=== PATIENT | female | born 1960 | race Caucasian/White ===

== ENCOUNTER → 2017-09-18 | Outpatient (CLI) | payer OTHER ==
[~2017-09-18] MED LIST: CEPHALEXIN500 M1 PO; METOPROLOL TART50 MG PO; Z.0.LEVOTHYROXINE50 PO; Z.0.LISINOPRIL40 MG PO; [UNRECOGNIZED DRUG - OTHER] PO; [UNRECOGNIZED DRUG - REMARK] PO
--- NOTE | 2017-09-25 18:11 | Diagnostic Imaging Report ---
#[id number] - MGSCRBIL #BILATERAL DIGITAL SCREENING MAMMOGRAM WITH CAD: 09/18/2017 CLINICAL: Routine screening. Comparison is made to exams dated: 10/15/2015 mammogram and 08/31/2014 mammogram - [facility]. Current study contains 4 films. There are scattered fibroglandular elements in both breasts. Current study was also evaluated with a Computer Aided Detection (CAD) system. There are benign lymph nodes in both breasts. There also are benign calcifications in the left breast. No significant masses, calcifications, or other findings are seen in either breast. There has been no significant interval change. IMPRESSION: BENIGN There is no mammographic evidence of malignancy. A 1 year screening mammogram is recommended. The patient will be notified by letter of the results. Philipp macario/franky:09/24/2017 17:30:01 Shift Superintendent Caustic Cresylate: Remedios BOOTHE)([place]), [facility] letter sent: Compared to Prior B9 Mammogram BI-RADS: 2 Benign
== END ==
LOC: MAMMO 14:22
PROVIDERS: ATTEND Family Medicine
DX: Z12.31 Encounter for screening mammogram for malignant neoplasm of breast (principal)
CPT/HCPCS: 77067